=== PATIENT | male | born 1970 | race Caucasian/White ===

== ENCOUNTER 2018-09-15 08:47 | Emergency (ER) | payer OTHER ==
[2018-09-15 08:50] VITALS: BMI 22.3
[2018-09-15 08:55] VITALS: BP 132/81; PULSE 73; TEMP 98.7
--- NOTE | 2018-09-15 09:09 | PDOC ---
History of Present Illness - General Chief Complaint: Bite Stated Complaint: dog bite Time Seen by Provider: 09/15/18 08:48 History Source: Patient Exam Limitations: No Limitations - History of Present Illness Initial Comments: 48 yo M w no sig pmh presents to the ER after being bitten by a a dog. He states that 1 hour prior to arrival he was walking his dog when his dog started fighting with his neighbors dog. He manually the dogs to break up the fight and got bit multiple times on his right hand. he is not sure if his own dog or his neighbors dog bit him. He states he knows that his own personal dog is fully vaccinated. He believes his next door neighbors dog is also vaccinated but he is not sure. He states he will get in touch with his next door neighbor to find out if their dog is vaccinated. He has multiple small bite wounds on the right hand. 1 bite wound immediately proximal the the 2nd PIP joint on the dorsal aspect of the finger around 1 cm in length. A 2nd bite wound on the right dorsal DIP joint of the thumb around 0.5 cm in length. And a 3rd bit on the volar aspect of the right hand proximal to the PIP joint on the thenar eminence less than 0.5 cm in length. Last tetanus shot was 9 years prior. Allergies: NKA, NKDA PCP: Yoon Craven PSH: None reported Social Hx: Drinks recreationally, denies smoking or other substance usage. Past History - Past Medical History Allergies/Adverse Reactions: Allergies Allergy/AdvReac Type Severity Reaction Status Date / Time No Known Allergies Allergy Verified 09/15/18 08:48 Home Medications: Ambulatory Orders Amoxicillin/Potassium Clav [Augmentin 875-125 Tablet] 1 each PO BID #20 tablet 09/15/18 COPD: No - Suicide/Smoking/Psychosocial Hx Smoking History: Never smoked Hx Alcohol Use: No Drug/Substance Use Hx: No Review of Systems - Review of Systems Able to Perform ROS?: Yes Comments:: CONSTITUTIONAL: Absent: fever, no chills, no fatigue EYES: Absent: visual changes ENT: Absent: ear pain, no sore throat CARDIOVASCULAR: Absent: chest pain, no palpitations RESPIRATORY: Absent: cough, no SOB GI: Absent: abdominal pain, no nausea, no vomiting, no constipation, no diarrhea GENITOURINARY: Absent: dysuria, no frequency, no hematuria MUSKULOSKELETAL: Absent: back pain, no arthralgia, no myalgia SKIN: Present: rash NEURO: Absent: headache *Physical Exam - Vital Signs Last Vital Signs Temp Pulse Resp BP Pulse Ox 98.7 F 73 16 132/81 100 09/15/18 08:47 09/15/18 08:47 09/15/18 08:47 09/15/18 08:47 09/15/18 08:47 - Physical Exam Comments: GENERAL: Well-appearing, well-nourished. No apparent distress. HEENT: Normocephalic, atraumatic. PERRL, EOM intact. CARDIOVASCULAR: Normal S1, S2. Regular rate and rhythm. PULMONARY: Clear to auscultation bilaterally. ABDOMEN: Soft, non-distended, non-tender. EXTREMITIES: Normal ROM in all four extremities. RIGHT HAND: He has multiple small bite wounds on the right hand. 1 bite wound immediately proximal the the 2nd PIP joint on the dorsal aspect of the finger around 1 cm in length. A 2nd bite wound on the right dorsal DIP joint of the thumb around 0.5 cm in length. And a 3rd bit on the volar aspect of the right hand proximal to the PIP joint on the thenar eminence less than 0.5 cm in length. None of the bites are erythematous, and none appear to be infected. Palpation around the bite wounds cause minimal tenderness to palpation. SKIN: Warm, dry. No rash NEUROLOGICAL: No focal neurological deficits. Moderate Sedation - Procedure Monitoring Vital Signs: Procedure Monitoring Vital Signs Temperature 98.7 F 09/15/18 08:47 Pulse Rate 73 09/15/18 08:47 Respiratory Rate 16 09/15/18 08:47 Blood Pressure 132/81 09/15/18 08:47 O2 Sat by Pulse Oximetry (%) 100 09/15/18 08:47 Medical Decision Making - Medical Decision Making 48 yo M w no sig pmh presents to the ER after being bitten by a a dog with multiple small wounds. DDx IBNLT: dog bites, rabies, tetanus, septic arthritis, foreign body inside wounds, Broken hand bones Plan: Hand X-ray, thorough wound irrigation, Sterile dressing, Augmentin, DC - Will not suture together the wounds because of higher likelihood of infection. [facility] [place] [facility] Hotline: [phone] (Iva at the [facility] unit) Calling the hotline to confirm whether it is okay for patient to follow up with neighbors dog clinical data associate to see if that dog is vaccinated. Wound thoroughly irrigated and sterille dressing applied. Giving patient first dose of Augmentin 872/125 here in ED. Will send script to pharmacy for 5 days of taking augmentin BID. Maribell Ahn - from [facility] unit of [place] called and confirmed patient has 10 day window to monitor the dog to see if he develops any signs or symptoms of rabies infection. *DC/Admit/Observation/Transfer Diagnosis at time of Disposition: Dog bite - Discharge Dispostion Disposition: HOME Condition at time of disposition: Stable Decision to Admit order: No - Prescriptions Prescriptions: Amoxicillin/Potassium Clav [Augmentin 875-125 Tablet] 1 each PO BID #20 tablet - Referrals Referrals: Yoon Craven MD [Primary Care Provider] - - Patient Instructions Printed Discharge Instructions: How to Care for a Domestic Animal Bite, How to Care for a Wild Animal Bite, DI for Dog Bite Additional Instructions: You came into the ER after a dog bite. We cleaned out your wound and put on a sterile dressing on it. We also updated your tetanus shot. We are sending Abx to your pharmacy for you to take twice a day for the next 5 days. Please make sure to go and pick it up. IT IS EXTREMELY IMPORTANT FOR YOU TO FIND OUT IF YOUR NEIGHBORS DOG HAS BEEN VACCINATED FOR RABIES. [facility] [place] [facility] Hotline: [phone] (Iva at the [facility]) CALL THIS NUMBER FOR FURTHER GUIDANCE. Make sure to come back to the ER if your pain worsens, you get a fever, find out your neighbors dog has not been vaccinated, if your dog starts getting sick and acting weird, or if you have any other new or worsening concerns. Thank you for coming to the [facility]. We hope you feel better soon! Print Language: KYRGYZ - Post Discharge Activity
[2018-09-15] MEDS ORDERED: DIPHTH,PERTUSS(ACELL),TET 0.5 ML DISP.SYRIN IM ONE ×2 (09:10→09:35)
--- NOTE | 2018-09-15 09:32 | PDOC ---
Attending Attestation - Resident Resident Name: Rohan Galindo - ED Attending Attestation I have performed the following: I have examined & evaluated the patient, The case was reviewed & discussed with the resident, I agree w/resident's findings & plan, Exceptions are as noted - HPI HPI: 09/15/18 10:21 48 years old no past medical history was bit on his right hand by either his dog or a known dog mall walking his dog in a park. Patient states the 2 dogs began to get into a small fight while breaking up years but not sure which dog bit him. His dog is fully vaccinated the other dog is commonly seen walking in the local [facility] is healthy they recognized the neighbor but did not know exactly where she lives. No other injury sustained. Complaining of mild hand pain persistent constant worse with movement no exacerbating or alleviating factors. - Physicial Exam PE: 09/15/18 10:21 Vitals: Triage Vital signs reviewed General Appearance: no acute distress, well nourished well develope, Head:Atraumati, Skin: Warm and dr, small respiration to dorsum of hand approximately 0.5 cm few bruises to the palmar surface over the base of the palmno janessa,no petechia Neuro:Strength intact to all extremitie,Sensation intact to all extremitiegait kwaku Psych: normal mood, normal affec - Medical Decision Making 09/15/18 10:23 We'll appearing no apparent distress patient presents with dog bite to right hand. No indication for rabies vaccination at this moment we have obtained the patient's phone number. He'll return home and try to contact the dog np to obtain vaccination records [facility] will follow this up In the meantime his x-ray was negative for acute fracture dislocation. The laceration was tiny roughly approximated with a Steri-Strip but was not completely closed secondary to contraindications given dog bite Historywas updated he was treated with Augmentin He return to ED for any signs of infection or should initiation of rabies protocol be indicated Findings, the need for follow-up and strict return instructions discussed with patient.
[2018-09-15] MEDS ORDERED: AMOX TR/POT CLAV 875MG/125MG TABLETS (FP) PO ONE (09:46)
[2018-09-15] MEDS ORDERED: AMOX TR/POT CLAV 875MG/125MG TABLETS (FP) ONE (09:55)
== END 2018-09-15 10:00 | disposition home or self-care (01) ==
LOC: FER 08:47
PROC: 3E0234Z Introduction of Serum, Toxoid and Vaccine into Muscle, Percutaneous Approach (ICD-10-PCS; principal; 2018-09-15)
DX: S61.451A Open bite of right hand, initial encounter (principal); W54.0XXA Bitten by dog, initial encounter; Y93.K1 Activity, walking an animal; Y92.89 Other specified places as the place of occurrence of the external cause
CPT/HCPCS: 73130-TC-RT-FY; 90471; 90715; 99282-25

== ENCOUNTER 2023-03-02 19:19 | Emergency (ER) | payer OTHER ==
[2023-03-02] MEDS ORDERED: ACETAMINOPHEN 1000 MG/100 ML BAG IVPB ONE (19:25)
[2023-03-02] MEDS ORDERED: SODIUM CHLORIDE 1,000 ML IV ONE (19:25)
[2023-03-02 19:29] VITALS: PULSE 66; RESP 20; BMI 50.3
[2023-03-02] MEDS ORDERED: ACETAMINOPHEN INJECTION 100 ML IVPB ONE (19:33)
[2023-03-02 19:55] VITALS: BP 115/74
[2023-03-02 19:59] LABS: HEMATOCRIT 40.5 % (35.4-49); HEMOGLOBIN 14.6 G/dL (11.7-16.9); MCH 33.9 pg (25.7-33.7); MEAN CELL VOLUME 94.3 fl (80-96); MEAN PLT VOLUME 8.5 fl (7.5-11.1); PLATELET COUNT 246.6 10^3/uL (134-434); RDW 12.9 % (11.9-15.9); WHITE BLOOD COUNT 5.7 10^3/uL (4.0-10.8)
[2023-03-02 20:11] LABS: ALBUMIN 4.2 g/dl (3.4-5.0); BILIRUBIN,TOTAL 0.9 mg/dl (0.2-1); BLOOD UREA NITROGEN 13.5 mg/dl (7-18); CALCIUM 9.7 mg/dl (8.5-10.1); POTASSIUM 3.6 mmol/L (3.5-5.1); SGOT/AST 19.9 U/L (15-37); SGPT/ALT 14.8 U/L (7-52); TOT PROT 6.1 g/dl (6.4-8.2)
== END 2023-03-02 22:48 | disposition home or self-care (01) ==
LOC: FER 19:19
PROC: 3E033NZ Introduction of Analgesics, Hypnotics, Sedatives into Peripheral Vein, Percutaneous Approach (ICD-10-PCS; principal; 2023-03-02)
PROC: 3E0337Z Introduction of Electrolytic and Water Balance Substance into Peripheral Vein, Percutaneous Approach (ICD-10-PCS; 2023-03-02)
DX: S22.31XA Fracture of one rib, right side, initial encounter for closed fracture (principal); J93.9 Pneumothorax, unspecified; R07.9 Chest pain, unspecified; V18.0XXA Pedal cycle driver injured in noncollision transport accident in nontraffic accident, initial encounter
CPT/HCPCS: 36415; 71045-TC-FY; 71250-TC; 80053; 82550; 82553; 84484; 85027; 86850; 86900; 86901; 93005; 99285-25

== ENCOUNTER 2023-03-06 13:35 | Emergency (ER) | payer OTHER ==
[2023-03-06 14:19] VITALS: BP 158/92; PULSE 67; RESP 18; TEMP 98.8; BMI 23.6
== END 2023-03-06 15:32 | disposition left against medical advice (07) ==
LOC: FER 13:35
DX: S27.0XXD Traumatic pneumothorax, subsequent encounter (principal); V29.888D Rider (driver) (passenger) of other motorcycle injured in other specified transport accidents, subsequent encounter; Y93.55 Activity, bike riding; Y92.482 Bike path as the place of occurrence of the external cause
CPT/HCPCS: 71046-TC-FY; 99283-25